=== PATIENT | female | born 1990 | race African-American/Black ===

== ENCOUNTER 2017-09-05 23:02 | Emergency (ER) | payer SELFPAY ==
[~2017-09-05] VITALS: Ht 167.6 cm; Wt 72.6 kg
[2017-09-05 23:17] VITALS: BP 127/87
--- NOTE | 2017-09-05 23:47 | NUR ---
PT BROUGHT TO ER BED 04 BY AIME
--- NOTE | 2017-09-06 00:15 | NUR ---
Patient being evaluated by physician at bedside.
[2017-09-06] MEDS ORDERED: NACL 0.9% 1,000 ML IV ONE (00:20)
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
--- NOTE | 2017-09-06 00:24 | NUR ---
UA DONE, HCG NEG
[2017-09-06 00:39] LABS: APPEARANCE,URINE HAZY (CLEAR); BILIRUBIN,URINE NEGATIVE (NEGATIVE); BLOOD, URINE NEGATIVE (NEGATIVE); COLOR,URINE YELLOW (YELLOW); LEUKOCYTE ESTERASE ,URINE 2+ (NEGATIVE); NITRITE, URINE NEGATIVE (NEGATIVE); UGLUCOSE NEGATIVE (NEGATIVE)
[2017-09-06 00:48] LABS: RBC,URINE 0-5 (RARE) /HPF (0-5); WBC,URINE 60-80 /HPF (0-5)
[2017-09-06 00:49] LABS: BARBITURATE, URINE NEG. ng/ml (NEG <=200); BENZODIAZEPINE, URINE NEG. ng/mL (NEG <=200); CANNABINOID, URINE POS. ng/mL (NEG <=50); COCAINE, URINE NEG. ng/mL (NEG <=300); OPIATE, URINE NEG. ng/mL (NEG <=2000); PHENCYCLIDINE SCREEN,URINE NEG. ng/mL (NEG <=25)
[2017-09-06 00:56] LABS: MEAN CORPUSCULAR HEMOGLOBIN 27 pg (27-31); MEAN CORPUSCULAR HGB CONC 32 g/dL (33-37); MEAN CORPUSCULAR VOLUME 83 fL (80-94); PLATELET COUNT (AUTO) 360 K/uL (140-450); RED BLOOD CELL COUNT(AUTO) 6.01 MIL/uL (4.20-5.40); RED CELL DISTRIBUTION WIDTH 14.1 % (11.6-13.7); WHITE BLOOD COUNT (AUTO) 8.8 K/uL (4.8-10.8)
[2017-09-06 01:07] LABS: EOSINOPHILS % (MANUAL) 1 % (0-4); LYMPHOCYTES % (MANUAL) 31 % (20-46); MONOCYTES % (MANUAL) 9 % (5-12)
[2017-09-06 01:08] LABS: ANION GAP 13.6 (8-16); CARBON DIOXIDE 27.9 mmol/L (21-32); POTASSIUM 3.5 mmol/L (3.5-5.1); TOTAL BILIRUBIN 0.2 mg/dL (0.0-1.0)
[2017-09-06 01:09] LABS: ALBUMIN 4.1 g/dL (3.4-5.0)
--- NOTE | 2017-09-06 02:00 | NUR ---
Patient appears to be resting comfortably in bed. Vital Signs within normal limits. Respirations even and unlabored.
--- NOTE | 2017-09-06 04:00 | NUR ---
Patient appears to be resting comfortably in bed. Vital Signs within normal limits. Respirations even and unlabored.
[2017-09-06 06:07] VITALS: BP 123/84
--- NOTE | 2017-09-06 06:07 | NUR ---
Patient discharged with v/s stable. Written and verbal after care instructions given and explained. Patient verbalized understanding. Ambulatory with steady gait. All questions addressed prior to discharge. Advised to follow up with PMD.
== END 2017-09-06 06:07 | disposition home or self-care (01) ==
LOC: MED 23:02
DX: G92 Toxic encephalopathy (principal); F10.129 Alcohol abuse with intoxication, unspecified; F17.210 Nicotine dependence, cigarettes, uncomplicated
CPT/HCPCS: 36415; 80053; 80305; 81001; 81025; 85025; 87086; 96360; 99284; G0482; 87186